=== PATIENT | female | born 1985 | race Caucasian/White ===

== ENCOUNTER → 2021-01-05 | Outpatient (CLI) | payer BC | END | disposition home or self-care (01) | LOC: LABWHC1 15:26 | PROVIDERS: ATTEND Family Medicine | DX: J02.9 Acute pharyngitis, unspecified (principal); R09.81 Nasal congestion | CPT/HCPCS: U0003; C9803 ==

== ENCOUNTER 2021-11-29 14:06 | Emergency (ER) | payer BC ==
--- NOTE | 2021-11-29 15:22 | ED ---
General Adult HPI - General Source: patient, RN notes reviewed Mode of arrival: ambulatory Limitations: no limitations <Gilberto Thomaosn - Last Filed: 11/29/21 15:20> <Joseph Kirkpatrick - Last Filed: 11/29/21 19:11> - General Stated complaint: Enlarged Liver Time Seen by Provider: 11/29/21 15:20 - History of Present Illness Initial comments: 36-year-old female presents emergency Department chief complaint of upper abdominal pain. Patient states she's had symptoms last few days. Patient states that she's had some nausea, and which she thought was initially hypertensive and antacids that did not seem to help much. She was seen in [facility] and sent here for further evaluation. She did receive Zofran which seemed to help. She's had some mild diarrhea or dysuria no hematuria no chance . Patient said no prior abdominal surgeries. Patient states that they did an x-ray and they told her liver was enlarged and sent her here for further evaluation (Gilberto Thomason) Patient is a 36-year-old female with past medical history remarkable for COPD, chronic tobacco use who presents emergency Department complaining of multiple day history of epigastric abdominal pain. She scribes as an achy sensation that is occasionally burning. It does not radiate. States she is reduced appetite because of it. Endorses occasional nausea but denies any episodes of emesis. Has had occasional diarrhea has been nonbloody. Denies any fevers, chills, cough. Denies any chest pain. His no other acute complaint at this time. Was evaluated at the urgent care, where a x-ray showed a possible enlarged liver and she was sent here for further evaluation. She denies any other new complaints. Denies any vaginal discharge or bleeding. Denies any dysuria or hematuria. She denies any chronic alcohol abuse but does admit to social drinking of alcohol. Has no other acute complaints at this time. I evaluated the patient when she was placed in a room. Laboratory studies were already ordered. (Joseph Ferrara) - Related Data Home Medications Medication Instructions Recorded Confirmed Dextroamphetamine/Amphetamine 10 mg PO BID@0700,1200 11/29/21 11/29/21 [Adderall] Ondansetron HCl [Zofran] 4 mg PO QID PRN 11/29/21 11/29/21 Previous Rx's Medication Instructions Recorded Famotidine [Pepcid] 20 mg PO DAILY 14 Days #14 tablet 11/29/21 Ondansetron Odt [Zofran Odt] 4 mg PO Q8HR PRN 3 Days #9 tab 11/29/21 Allergies Allergy/AdvReac Type Severity Reaction Status Date / Time No Known Allergies Allergy Verified 11/29/21 15:19 Review of Systems ROS Other: All systems not noted in ROS Statement are negative. <Gilberto Thomason - Last Filed: 11/29/21 15:20> ROS Other: All systems not noted in ROS Statement are negative. <Joseph Kirkpatrick - Last Filed: 11/29/21 19:11> ROS Statement: Those systems with pertinent positive or pertinent negative responses have been documented in the HPI. Review of Systems: CONST: Denies fever EYES: Denies blurry vision ENT: Denies nasal congestion C/V: Denies Chest pain RESP: Denies shortness of breath GI: Endorses epigastric abdominal pain. : Denies dysuria SKIN: Denies rash. MSK: Denies joint pain. NEURO: Denies headache (Joseph Kirkpatrick) General Exam <Joseph Kirkpatrick - Last Filed: 11/29/21 19:11> - General Exam Comments Initial Comments: General: Appears in no acute distress. HEAD: Normal with no signs of head trauma. EYES: PERRLA, EOMI, conjunctiva normal, no discharge. ENT: Hearing grossly intact, normal oropharynx. RESPIRATORY: Clear breath sounds bilaterally. No wheezes, rales, or rhonchi. C/V: Regular rate and rhythm. S1 and S2 auscultated, no edema, peripheral pulses 2+ and intact throughout ABD: Abdomen soft, nondistended. Patient is tender to palpation in the epigastric region. No CVA tenderness to percussion. No guarding. No periton eal signs. No rebound tenderness. EXT: Normal range of motion, no obvious deformity SKIN: No rashes or lesions observed on exposed skin. NEURO: Alert and oriented 4. (Joseph Kirkpartick) Course Vital Signs 11/29/21 15:20 Temperature 98.1 F Pulse Rate 89 Respiratory 20 Rate Blood Pressure 162/102 O2 Sat by Pulse 96 Oximetry Medical Decision Making - Lab Data Result diagrams: 11/29/21 15:26 11/29/21 15:26 - EKG Data -: EKG Interpreted by Me <Joseph Kirkpatrick - Last Filed: 11/29/21 19:11> - Medical Decision Making Based the patient's presentation and physical exam, I'm concerned for intra- abdominal process for current symptoms, but cannot rule out atypical cause of cardiac etiology either. Therefore screening EKG will be obtained in addition to gallbladder and liver ultrasound. Laboratory studies were already drawn are unremarkable, including normal kidney function, negative lactic acid, normal lipase, negative test, as well as normal urine. She has no signs of acute infection on labs. I did discuss this with the patient. She was in agreement this plan. She'll be sent medically treated with 1 L fluid bolus as well as IV Zofran, Pepcid, Benadryl and some Maalox. Patient's EKG showed no signs of acute ischemia. Right upper quadrant ultrasound revealed normal gallbladder. Negative exam. Liver is mildly enlarged. On reevaluation, patient's symptoms have completely resolved. I did discuss the ultrasound findings with her as well as the normal workup otherwise. I believe it is safe for her to be discharged home. She was in agreement this plan. She'll be given GI follow-up as well as ODT Zofran and Pepcid. She was in agreement this plan. I will provide the patient with a prescription for ODT Zofran, Pepcid. I instructed the patient to follow up with their PCP in the next 3 days. [I provided contact information for follow up with] Dr. Dr. Kaye of gastroenterology. I explained that the patient should return to the emergency department if they experience any worsening symptoms. Strict return precautions were discussed with the patient. The patient expressed understanding of these instructions. I answered all questions that the patient had. The patient was discharged home in good condition with their prescriptions and follow up information. (Joseph Kirkpatrick) - Lab Data Lab Results 11/29/21 11/29/21 11/29/21 Range/Units 15:26 15: 15: WBC 6.8 (3.8-10.6) k/uL RBC 4.75 (3.80-5.40) m/uL Hgb 14.8 (11.4-16.0) gm/dL Hct 43.8 (34.0-46.0) % MCV 92.3 (80.0-100.0) fL MCH 31.1 (25.0-35.0) pg MCHC 33.7 (31.0-37.0) g/dL RDW 11.9 (11.5-15.5) % Plt Count 244 (150-450) k/uL MPV 7.4 Neutrophils % 72 % Lymphocytes % 19 % Monocytes % 4 % Eosinophils % 3 % Basophils % 0 % Neutrophils # 4.9 (1.3-7.7) k/uL Lymphocytes # 1.3 (1.0-4.8) k/uL Monocytes # 0.3 (0-1.0) k/uL Eosinophils # 0.2 (0-0.7) k/uL Basophils # 0.0 (0-0.2) k/uL Sodium (137-145) mmol/L Potassium (3.5-5.1) mmol/L Chloride (98-107) mmol/L Carbon Dioxide (22-30) mmol/L Anion Gap mmol/L BUN (7-17) mg/dL Creatinine (0.52-1.04) mg/dL Est GFR (CKD-EPI)AfAm (>60 ml/min/1.73 sqM) Est GFR (CKD-EPI)NonAf (>60 ml/min/1.73 sqM) Glucose (74-99) mg/dL Plasma Lactic Acid Michael (0.7-2.0) mmol/L Calcium (8.4-10.2) mg/dL Total Bilirubin (0.2-1.3) mg/dL AST (14-36) U/L ALT (4-34) U/L Alkaline Phosphatase (38-126) U/L Total Protein (6.3-8.2) g/dL Albumin (3.5-5.0) g/dL Lipase (23-300) U/L Urine Color Yellow Urine Appearance Clear (Clear) Urine pH 5.5 (5.0-8.0) Ur Specific [place] 1.015 (1.001-1.035) Urine Protein Negative (Negative) Urine Glucose (UA) Negative (Negative) Urine Ketones Negative (Negative) Urine Blood Negative (Negative) Urine Nitrite Negative (Negative) Urine Bilirubin Negative (Negative) Urine Urobilinogen <2.0 (<2.0) mg/dL Ur Leukocyte Esterase Negative (Negative) Urine HCG, Qual Not Detected (Not Detectd) 11/29/21 11/29/21 Range/Units 15:26 15:26 WBC (3.8-10.6) k/uL RBC (3.80-5.40) m/uL Hgb (11.4-16.0) gm/dL Hct (34.0-46.0) % MCV (80.0-100.0) fL MCH (25.0-35.0) pg MCHC (31.0-37.0) g/dL RDW (11.5-15.5) % Plt Count (150-450) k/uL MPV Neutrophils % % Lymphocytes % % Monocytes % % Eosinophils % % Basophils % % Neutrophils # (1.3-7.7) k/uL Lymphocytes # (1.0-4.8) k/uL Monocytes # (0-1.0) k/uL Eosinophils # (0-0.7) k/uL Basophils # (0-0.2) k/uL Sodium 139 (137-145) mmol/L Potassium 3.7 (3.5-5.1) mmol/L Chloride 108 H (98-107) mmol/L Carbon Dioxide 19 L (22-30) mmol/L Anion Gap 12 mmol/L BUN 6 L (7-17) mg/dL Creatinine 0.70 (0.52-1.04) mg/dL Est GFR (CKD-EPI)AfAm >90 (>60 ml/min/1.73 sqM) Est GFR (CKD-EPI)NonAf >90 (>60 ml/min/1.73 sqM) Glucose 101 H (74-99) mg/dL Plasma Lactic Acid Michael <0.5 L (0.7-2.0) mmol/L Calcium 8.8 (8.4-10.2) mg/dL Total Bilirubin 0.5 (0.2-1.3) mg/dL AST 22 (14-36) U/L ALT 17 (4-34) U/L Alkaline Phosphatase 58 (38-126) U/L Total Protein 7.1 (6.3-8.2) g/dL Albumin 4.4 (3.5-5.0) g/dL Lipase 108 (23-300) U/L Urine Color Urine Appearance (Clear) Urine pH (5.0-8.0) Ur Specific [place] (1.001-1.035) Urine Protein (Negative) Urine Glucose (UA) (Negative) Urine Ketones (Negative) Urine Blood (Negative) Urine Nitrite (Negative) Urine Bilirubin (Negative) Urine Urobilinogen (<2.0) mg/dL Ur Leukocyte Esterase (Negative) Urine HCG, Qual (Not Detectd) - EKG Data EKG Comments: 12-lead Electrocardiogram Interpretation Note EKG was reviewed and interpreted by myself. 12-lead ECG performed at 1833 is interpreted by me as revealing normal sinus rhythm at a rate of 72 beats per minute. Otho is normal. OH interval is 160 ms, QRS duration is 94 ms, QTc is 442 ms.. There is an isolated T-wave inversion in lead III. There were no ST or T wave abnormalities to suggest myocardial ischemia or injury. R wave progression across the precordium was satisfactory. By my interpretation this EKG is non-diagnostic for acute ischemia. (Joseph Kirkpatrick) Disposition <Gilberto Thomason - Last Filed: 11/29/21 15:20> Is patient prescribed a controlled substance at d/c from ED?: No <Joseph Kirkpatrick - Last Filed: 11/29/21 19:11> Clinical Impression: Abdominal pain, Enlarged liver Disposition: HOME SELF-CARE Condition: Good Instructions (If sedation given, give patient instructions): Abdominal Pain (ED) Prescriptions: Famotidine [Pepcid] 20 mg PO DAILY 14 Days #14 tablet Ondansetron Odt [Zofran Odt] 4 mg PO Q8HR PRN 3 Days #9 tab PRN Reason: Nausea Referrals: Preet Das MD [Primary Care Provider] - 1-2 days Justina Kaye MD [STAFF PHYSICIAN] - 1-2 days
[2021-11-29 15:23] VITALS: BP 162/102; PULSE 89; RESP 20; TEMP 98.1
[2021-11-29 15:44] LABS: Basophils % (A) 0 %; Eosinophils # (A) 0.2 k/uL (0-0.7); Eosinophils % (A) 3 %; HCT 43.8 % (34.0-46.0); HGB 14.8 gm/dL (11.4-16.0); Lymphocytes # (A) 1.3 k/uL (1.0-4.8); Lymphocytes % (A) 19 %; MCH 31.1 pg (25.0-35.0); MCHC 33.7 g/dL (31.0-37.0); MCV 92.3 fL (80.0-100.0); Mean Platelet Volume 7.4; Monocytes # (A) 0.3 k/uL (0-1.0); Monocytes % (A) 4 %; Neutrophils # (A) 4.9 k/uL (1.3-7.7); Neutrophils % (A) 72 %; Platelet Count 244 k/uL (150-450); RBC 4.75 m/uL (3.80-5.40); RDW 11.9 % (11.5-15.5); WBC 6.8 k/uL (3.8-10.6)
[2021-11-29 15:53] LABS: ALT 17 U/L (4-34); AST 22 U/L (14-36); African American GFR (CKD) >90 (>60 ml/min/1.73 sqM); Albumin 4.4 g/dL (3.5-5.0); Alkaline Phosphatase 58 U/L (38-126); Anion Gap 12 mmol/L; Blood Urea Nitrogen 6 mg/dL (7-17); Calcium 8.8 mg/dL (8.4-10.2); Carbon Dioxide 19 mmol/L (22-30); Chloride 108 mmol/L (98-107); Glucose 101 mg/dL (74-99); Lipase 108 U/L (23-300); Non-African American GFR(CKD) >90 (>60 ml/min/1.73 sqM); Potassium 3.7 mmol/L (3.5-5.1); Sodium 139 mmol/L (137-145); Total Bilirubin 0.5 mg/dL (0.2-1.3); Total Protein 7.1 g/dL (6.3-8.2)
[2021-11-29 15:56] LABS: Appearance,Urine Clear (Clear); Bilirubin,Urine Negative (Negative); Blood,Urine Negative (Negative); Color,Urine Yellow; Glucose,Urine (UA) Negative (Negative); Ketones,Urine Negative (Negative); Leukocyte Esterase,Urine Negative (Negative); Nitrite,Urine Negative (Negative); PH, Urine 5.5 (5.0-8.0); Protein,Urine Negative (Negative); Specific Gravity,Urine 1.015 (1.001-1.035); Urobilinogen,Urine <2.0 mg/dL (<2.0)
[2021-11-29] MEDS ORDERED: SODIUM CHLORIDE 0.9% 1,000 ML IV ONE (16:59)
[2021-11-29] MEDS ORDERED: diphenhydrAMINE 50 MG/ML 1 ML VIAL IVP STA (16:59)
[2021-11-29] MEDS ORDERED: ONDANSETRON 4 MG/2 ML VIAL IVP STA (16:59)
[2021-11-29] MEDS ORDERED: FAMOTIDINE 20 MG/2 ML VIAL IV STA (16:59)
[2021-11-29] MEDS ORDERED: MAG HYDROX/AL HYDROX/SIMETH 30 ML CUP PO STA (17:00)
--- NOTE | 2021-11-29 18:34 | US ---
EXAMINATION TYPE: US gallbladder DATE OF EXAM: 11/29/2021 COMPARISON: NONE CLINICAL HISTORY: enlarged liver on xray outpatient. Pain, enlarged liver seen on outpatient XR. EXAM MEASUREMENTS: Liver Length: 18.6 cm Gallbladder Wall: 0.18 cm CBD: 0.59 cm Right Kidney: 11.2 x 5.5 x 4.0 cm Limited due to gas. Pancreas: Not well seen. Liver: Appears enlarged Gallbladder: Fold seen at neck. Appears anechoic. Evidence for sonographic Mak's sign: No. CBD: Measures upper limits of normal. Right Kidney: No hydronephrosis or masses seen IMPRESSION: No gallstones or dilated ducts. Negative exam.
== END 2021-11-29 19:05 | disposition home or self-care (01) ==
LOC: EC 14:06
DX: R16.0 Hepatomegaly, not elsewhere classified (principal); R10.10 Upper abdominal pain, unspecified; J44.9 Chronic obstructive pulmonary disease, unspecified
CPT/HCPCS: 36415; 93005; 80053; 83605; 83690; 85025; 81003; 81025; 76705; 99284; 96374; 96375; 96361; J1200; J2405

== ENCOUNTER 2021-11-30 09:08 | Emergency (ER) | payer BC ==
[2021-11-30] MEDS ORDERED: IOPAMIDOL CONTRAST (ORAL USE) VIAL PO PRN (10:01)
[2021-11-30] MEDS ORDERED: PANTOPRAZOLE 40 MG/10 ML VIAL IVP STA (10:02)
[2021-11-30] MEDS ORDERED: KETOROLAC 15 MG/ML 1 ML VIAL IVP STA (10:03)
[2021-11-30 10:27] LABS: Appearance,Urine Clear (Clear); Bilirubin,Urine Negative (Negative); Blood,Urine Negative (Negative); Color,Urine Yellow; Glucose,Urine (UA) Negative (Negative); Ketones,Urine Negative (Negative); Leukocyte Esterase,Urine Negative (Negative); Nitrite,Urine Negative (Negative); PH, Urine 6.5 (5.0-8.0); Protein,Urine Trace (Negative); Specific Gravity,Urine 1.021 (1.001-1.035)
[2021-11-30 10:36] LABS: Basophils % (A) 0 %; Eosinophils # (A) 0.2 k/uL (0-0.7); Eosinophils % (A) 2 %; HCT 43.2 % (34.0-46.0); HGB 14.5 gm/dL (11.4-16.0); Lymphocytes # (A) 1.6 k/uL (1.0-4.8); Lymphocytes % (A) 18 %; MCH 31.6 pg (25.0-35.0); MCHC 33.6 g/dL (31.0-37.0); MCV 93.8 fL (80.0-100.0); Mean Platelet Volume 7.3; Monocytes # (A) 0.4 k/uL (0-1.0); Monocytes % (A) 5 %; Neutrophils # (A) 6.4 k/uL (1.3-7.7); Neutrophils % (A) 74 %; Platelet Count 273 k/uL (150-450); RDW 12.5 % (11.5-15.5); WBC 8.7 k/uL (3.8-10.6)
[2021-11-30 10:39] LABS: ALT 17 U/L (4-34); AST 24 U/L (14-36); African American GFR (CKD) >90 (>60 ml/min/1.73 sqM); Albumin 4.3 g/dL (3.5-5.0); Alkaline Phosphatase 70 U/L (38-126); Amylase 46 U/L (30-110); Anion Gap 9 mmol/L; Blood Urea Nitrogen 6 mg/dL (7-17); Calcium 8.8 mg/dL (8.4-10.2); Carbon Dioxide 22 mmol/L (22-30); Chloride 109 mmol/L (98-107); Glucose 95 mg/dL (74-99); Lipase 147 U/L (23-300); Non-African American GFR(CKD) >90 (>60 ml/min/1.73 sqM); Potassium 3.8 mmol/L (3.5-5.1); Sodium 140 mmol/L (137-145); Total Bilirubin 0.4 mg/dL (0.2-1.3); Total Protein 7.2 g/dL (6.3-8.2)
--- NOTE | 2021-11-30 10:41 | ED ---
Abdominal Pain HPI - General Chief Complaint: Abdominal Pain Stated Complaint: Abd pain, enlarged liver, revisit Time Seen by Provider: 11/30/21 09:20 Source: patient, RN notes reviewed, old records reviewed Mode of arrival: ambulatory Limitations: no limitations - History of Present Illness Initial Comments: 36-year-old female returns today with complaints of increased abdominal pain she was seen yesterday told she had an enlarged liver ultrasound showed unremarkable gallbladder. Pain was burning in nature 7 and 8/10 severity worse with food better in a supine position no overt nausea vomiting diarrhea seen at this time MD Complaint: abdominal pain - Related Data Home Medications Medication Instructions Recorded Confirmed Dextroamphetamine/Amphetamine 10 mg PO BID@0700,1200 11/29/21 11/30/21 [Adderall] Famotidine [Pepcid] 20 mg PO DAILY 11/30/21 11/30/21 Previous Rx's Medication Instructions Recorded Ondansetron Odt [Zofran Odt] 4 mg PO Q8HR PRN 3 Days #9 tab 11/29/21 Dicyclomine [Bentyl] 10 mg PO TID #15 capsule 11/30/21 Pantoprazole [Protonix] 40 mg PO DAILY 7 Days #7 tab 11/30/21 Allergies Allergy/AdvReac Type Severity Reaction Status Date / Time No Known Allergies Allergy Verified 11/30/21 09:44 Review of Systems ROS Statement: Those systems with pertinent positive or pertinent negative responses have been documented in the HPI. ROS Other: All systems not noted in ROS Statement are negative. Past Medical History Past Medical History: No Reported History Additional Past Medical History / Comment(s): enlarged liver History of Any Multi-Drug Resistant Organisms: None Reported Past Surgical History: Tonsillectomy Past Psychological History: ADD/ADHD Smoking Status: Current every day smoker Past Alcohol Use History: Occasional Past Drug Use History: None Reported General Exam - General Exam Comments Initial Comments: This is a well-developed well-nourished awake alert oriented 3 male Limitations: no limitations General appearance: alert, anxious Head exam: Present: atraumatic, normocephalic, normal inspection Eye exam: Present: normal appearance, PERRL, EOMI. Absent: scleral icterus, conjunctival injection, periorbital swelling ENT exam: Present: normal exam, mucous membranes moist Neck exam: Present: normal inspection. Absent: tenderness, meningismus, lymphadenopathy Respiratory exam: Present: normal lung sounds bilaterally. Absent: respiratory distress, wheezes, rales, rhonchi, stridor Cardiovascular Exam: Present: regular rate, normal rhythm, normal heart sounds. Absent: systolic murmur, diastolic murmur, rubs, gallop, clicks GI/Abdominal exam: Present: soft, tenderness (Epigastric and right upper quadrant tenderness palpation no overt guarding rebound masses or bruits), norm al bowel sounds. Absent: distended, guarding, rebound, rigid Extremities exam: Present: normal inspection, full ROM, normal capillary refill. Absent: tenderness, pedal edema, joint swelling, calf tenderness Back exam: Present: normal inspection Neurological exam: Present: alert, oriented X3, CN II-XII intact Psychiatric exam: Present: normal affect, normal mood Skin exam: Present: warm, dry, intact, normal color. Absent: rash Course Vital Signs 11/30/21 11/30/21 09:11 13:48 Temperature 99.1 F 98.2 F Pulse Rate 83 60 Respiratory 18 18 Rate Blood Pressure 162/100 181/105 O2 Sat by Pulse 98 98 Oximetry - Reevaluation(s) Reevaluation #1: 11/30/21 14:25 Reevaluation patient she feels improved her blood pressure was noted be elevated with an improved. Medical Decision Making - Medical Decision Making Patient is feeling improved this time after IV Protonix. The presentation is consistent with abdominal pain secondary to enteritis and/or peptic ulcer disease. Patient will be discharged with instructions for proton pump inhibitor as well as increase oral fluids follow-up with Dr. Das for further evaluation. I did discuss this with her also with her father by telephone. - Lab Data Result diagrams: 11/30/21 10:10 11/30/21 10:10 Lab Results 11/30/21 11/30/21 11/30/21 Range/Units 10:10 10:10 10:10 WBC 8.7 (3.8-10.6) k/uL RBC 4.60 (3.80-5.40) m/uL Hgb 14.5 (11.4-16.0) gm/dL Hct 43.2 (34.0-46.0) % MCV 93.8 (80.0-100.0) fL MCH 31.6 (25.0-35.0) pg MCHC 33.6 (31.0-37.0) g/dL RDW 12.5 (11.5-15.5) % Plt Count 273 (150-450) k/uL MPV 7.3 Neutrophils % 74 % Lymphocytes % 18 % Monocytes % 5 % Eosinophils % 2 % Basophils % 0 % Neutrophils # 6.4 (1.3-7.7) k/uL Lymphocytes # 1.6 (1.0-4.8) k/uL Monocytes # 0.4 (0-1.0) k/uL Eosinophils # 0.2 (0-0.7) k/uL Basophils # 0.0 (0-0.2) k/uL Sodium 140 (137-145) mmol/L Potassium 3.8 (3.5-5.1) mmol/L Chloride 109 H (98-107) mmol/L Carbon Dioxide 22 (22-30) mmol/L Anion Gap 9 mmol/L BUN 6 L (7-17) mg/dL Creatinine 0.78 (0.52-1.04) mg/dL Est GFR (CKD-EPI)AfAm >90 (>60 ml/min/1.73 sqM) Est GFR (CKD-EPI)NonAf >90 (>60 ml/min/1.73 sqM) Glucose 95 (74-99) mg/dL Plasma Lactic Acid Michael (0.7-2.0) mmol/L Calcium 8.8 (8.4-10.2) mg/dL Total Bilirubin 0.4 (0.2-1.3) mg/dL AST 24 (14-36) U/L ALT 17 (4-34) U/L Alkaline Phosphatase 70 (38-126) U/L Troponin I (0.000-0.034) ng/mL Total Protein 7.2 (6.3-8.2) g/dL Albumin 4.3 (3.5-5.0) g/dL Amylase 46 (30-110) U/L Lipase 147 (23-300) U/L Urine Color Yellow Urine Appearance Clear (Clear) Urine pH 6.5 (5.0-8.0) Ur Specific [place] 1.021 (1.001-1.035) Urine Protein Trace H (Negative) Urine Glucose (UA) Negative (Negative) Urine Ketones Negative (Negative) Urine Blood Negative (Negative) Urine Nitrite Negative (Negative) Urine Bilirubin Negative (Negative) Urine Urobilinogen 2.0 (<2.0) mg/dL Ur Leukocyte Esterase Negative (Negative) Urine HCG, Qual (Not Detectd) 11/30/21 11/30/21 11/30/21 Range/Units 10:10 10:10 10:19 WBC (3.8-10.6) k/uL RBC (3.80-5.40) m/uL Hgb (11.4-16.0) gm/dL Hct (34.0-46.0) % MCV (80.0-100.0) fL MCH (25.0-35.0) pg MCHC (31.0-37.0) g/dL RDW (11.5-15.5) % Plt Count (150-450) k/uL MPV Neutrophils % % Lymphocytes % % Monocytes % % Eosinophils % % Basophils % % Neutrophils # (1.3-7.7) k/uL Lymphocytes # (1.0-4.8) k/uL Monocytes # (0-1.0) k/uL Eosinophils # (0-0.7) k/uL Basophils # (0-0.2) k/uL Sodium (137-145) mmol/L Potassium (3.5-5.1) mmol/L Chloride (98-107) mmol/L Carbon Dioxide (22-30) mmol/L Anion Gap mmol/L BUN (7-17) mg/dL Creatinine (0.52-1.04) mg/dL Est GFR (CKD-EPI)AfAm (>60 ml/min/1.73 sqM) Est GFR (CKD-EPI)NonAf (>60 ml/min/1.73 sqM) Glucose (74-99) mg/dL Plasma Lactic Acid Michael 0.6 L (0.7-2.0) mmol/L Calcium (8.4-10.2) mg/dL Total Bilirubin (0.2-1.3) mg/dL AST (14-36) U/L ALT (4-34) U/L Alkaline Phosphatase (38-126) U/L Troponin I <0.012 (0.000-0.034) ng/mL Total Protein (6.3-8.2) g/dL Albumin (3.5-5.0) g/dL Amylase (30-110) U/L Lipase (23-300) U/L Urine Color Urine Appearance (Clear) Urine pH (5.0-8.0) Ur Specific [place] (1.001-1.035) Urine Protein (Negative) Urine Glucose (UA) (Negative) Urine Ketones (Negative) Urine Blood (Negative) Urine Nitrite (Negative) Urine Bilirubin (Negative) Urine Urobilinogen (<2.0) mg/dL Ur Leukocyte Esterase (Negative) Urine HCG, Qual Not Detected (Not Detectd) - Radiology Data Radiology results: report reviewed (Imaging and report reviewed evidence of enteritis peptic ulcer disease not ruled out is considered.), image reviewed Disposition Clinical Impression: Abdominal pain, Enteritis Disposition: HOME SELF-CARE Condition: Good Instructions (If sedation given, give patient instructions): Abdominal Pain (ED), Enteritis (ED) Prescriptions: Dicyclomine [Bentyl] 10 mg PO TID #15 capsule Pantoprazole [Protonix] 40 mg PO DAILY 7 Days #7 tab Is patient prescribed a controlled substance at d/c from ED?: No Referrals: Preet Das MD [Primary Care Provider] - 1-2 days
--- NOTE | 2021-11-30 10:49 | XR ---
EXAMINATION TYPE: XR KUB DATE OF EXAM: 11/30/2021 10:38 AM CLINICAL HISTORY: Abdominal pain. TECHNIQUE: Two Upright KUB images of the abdomen are obtained. COMPARISON: Ultrasound gallbladder from yesterday. FINDINGS: Scattered gas is seen in non-distended small bowel loops. Gas and fecal material is seen in non-distended colon. Hepatomegaly is present. No suspicious calcifications. The lung bases are clear and the osseous structures are intact. IMPRESSION: Hepatomegaly redemonstrated. Overall nonobstructive bowel gas pattern.
--- NOTE | 2021-11-30 13:32 | CT ---
EXAMINATION TYPE: CT abdomen pelvis w con DATE OF EXAM: 11/30/2021 COMPARISON: HISTORY: Epigastric abdominal pain. CT DLP: 1071.7 mGycm Automated exposure control for dose reduction was used. TECHNIQUE: Helical acquisition of images from the lung bases through the pelvis have been completed. CONTRAST: Performed with Oral Contrast and with IV Contrast, patient injected with 100ml mL of Isovue 300. FINDINGS: LUNG BASES: No significant abnormality is appreciated. AORTA: No significant abnormality is appreciated. LIVER/GB: The liver is enlarged. Gallbladder is within normal limits. PANCREAS: No significant abnormality is seen. SPLEEN: No significant abnormality is seen. ADRENALS: No significant abnormality is seen. KIDNEYS: No significant abnormality is seen. REPRODUCTIVE ORGANS: Cystic focus is associated with the left ovary measuring 3 cm BOWEL: The appendix is normal. No bowel obstruction. Jejunal folds show a thickened appearance. Cont rast material has not coursed entirely through the bowel. Questionable thinning of the anterior aspec t of the proximal duodenum. FREE AIR: No Free Air visible. ASCITES: There is some free fluid in the pelvis which could be physiologic. PELVIC ADENOPATHY: None visualized. RETROPERITONEAL ADENOPATHY: No Retroperitoneal Adenopathy visible. URINARY BLADDER: No significant abnormality is seen. OSSEOUS STRUCTURES: No significant abnormality is seen. IMPRESSION: CORRELATE FOR ENTERITIS. FREE FLUID IN THE PELVIS COULD BE DUE TO RUPTURED OR INVOLUTING OVARIAN FOLL ICLE. HEPATOMEGALY. DIFFICULT TO EXCLUDE PEPTIC ULCER DISEASE.
[2021-11-30 13:53] VITALS: TEMP 98.2
[2021-11-30 14:38] VITALS: BP 175/89; PULSE 59; RESP 16
[2021-11-30 16:10] LABS: Hepatitis C IgG Antibody Nonreactive (Nonreactive)
[2021-11-30 16:11] LABS: Hepatitis A Antibody IgM Nonreactive (Nonreactive); Hepatitis B Core IgM Nonreactive (Nonreactive); Hepatitis B Surface Antigen Nonreactive (Nonreactive)
== END 2021-11-30 14:38 | disposition home or self-care (01) ==
LOC: EC 09:08
DX: K52.9 Noninfective gastroenteritis and colitis, unspecified (principal); F90.9 Attention-deficit hyperactivity disorder, unspecified type; F17.200 Nicotine dependence, unspecified, uncomplicated; Z79.899 Other long term (current) drug therapy
CPT/HCPCS: 36415; 80053; 80074; 82150; 83605; 83690; 84484; 85025; 81003; 81025; 74018; 74177; 99284; 96374; 96375; J1885; C9113; Q9967

== ENCOUNTER → 2022-06-04 | Outpatient (CLI) | payer BC ==
--- NOTE | 2022-06-05 08:18 | US ---
EXAMINATION TYPE: US pelvic complete DATE OF EXAM: 06/04/2022 COMPARISON: CT 2021 CLINICAL HISTORY: N93.8 DYSFUNCTIONAL UTERINE BLEEDING. Pain and spotting during intercourse, spottin g between periods TECHNIQUE: . Transabdominal sonographic images of the pelvis were acquired. Date of LMP: 05/19/2022 EXAM MEASUREMENTS: Uterus: 5.5 x 3.4 x 4.4 cm Endometrial Stripe: 0.6 cm Right Ovary: 6.3 x 4.4 x 5.7 cm Left Ovary: 2.8 x 1.9 x 2.3 cm 1. Uterus: anteverted 2. Endometrium: appears wnl 3. Right Ovary: 3.7 x 3.5 x 4.2cm complex cystic area 4. Left Ovary: wnl 5. Bilateral Adnexa: wnl 6. Posterior cul-de-sac: wnl IMPRESSION: Complex cyst right ovary. Consider follow-up study in 6 weeks.
== END | disposition home or self-care (01) ==
LOC: RADUSWWP 16:11
PROVIDERS: ATTEND Family Medicine
DX: N93.8 Other specified abnormal uterine and vaginal bleeding (principal); N83.201 Unspecified ovarian cyst, right side
CPT/HCPCS: 76856

== ENCOUNTER → 2023-04-16 | Outpatient (CLI) | payer BC ==
--- NOTE | 2023-04-17 16:12 | XR ---
EXAMINATION TYPE: XR lumbar spine 2 or 3V DATE OF EXAM: 04/16/2023 CLINICAL HISTORY: Low back pain for several months. TECHNIQUE: Frontal and lateral images of the lumbar spine are obtained. COMPARISON: CT abdomen and pelvis November 30, 2021 FINDINGS: There are 5 lumbar type vertebral bodies identified. The lumbar spine shows stable and sa tisfactory alignment without evidence of acute fracture or dislocation. Vertebral body heights and di sk space heights are within normal limits. Mild multilevel anterior disc space narrowing is redemonst rated. The overlying soft tissue appears unremarkable. IMPRESSION: As above.
--- NOTE | 2023-04-18 09:03 | XR ---
EXAMINATION TYPE: XR sacrum coccyx DATE OF EXAM: 04/16/2023 COMPARISON: NONE HISTORY: 38-year-old female M54.50, M54.30 TECHNIQUE: 3 views FINDINGS: SI joints appear symmetric and intact. Smooth delineation to the arcuate lines of the sacru m. Pubic symphysis is intact. Very minimal 3 mm all step-off along the posterior margin of the coccyg eal segments on the lateral view. IMPRESSION: Very minimal 3 mm of step-off along the posterior margin of the coccygeal segments on the lateral vie w. Findings suggest an age indeterminate minimal tailbone fracture. Clinically correlate.
== END | disposition home or self-care (01) ==
LOC: RADXRMAIN 17:07
PROVIDERS: ATTEND Family Medicine
DX: M48.061 Spinal stenosis, lumbar region without neurogenic claudication (principal); M54.40 Lumbago with sciatica, unspecified side
CPT/HCPCS: 72100; 72220

== ENCOUNTER → 2024-06-04 | Outpatient (CLI) | payer BC ==
[2024-06-04 15:08] LABS: Basophils # (A) 0.06 X 10*3/uL (0.00-0.10); Basophils % (A) 0.7 %; Eosinophils # (A) 0.14 X 10*3/uL (0.04-0.35); Eosinophils % (A) 1.6 %; HCT 42.6 % (37.2-46.3); HGB 14.4 g/dL (12.0-15.0); Lymphocytes # (A) 2.39 X 10*3/uL (0.90-5.00); Lymphocytes % (A) 27.6 %; MCH 29.6 pg (27.0-32.0); MCHC 33.8 g/dL (32.0-37.0); MCV 87.7 FL (80.0-97.0); Monocytes # (A) 0.49 X 10*3/uL (0.20-1.00); Monocytes % (A) 5.7 %; NRBC Per 100 WBC 0 X 10*3/uL (0.00-0.01); Neutrophils # (A) 5.55 X 10*3/uL (1.80-7.70); Neutrophils % (A) 64.1 %; Platelet Count 359 X 10*3/uL (140-440); RBC 4.86 X 10*6/uL (4.10-5.20); RDW 12.6 % (11.5-14.5); WBC 8.66 X 10*3/uL (4.50-10.00)
[2024-06-04 15:29] LABS: Erythrocyte Sedimentation Rate 7 mm/Hr (0-20)
[2024-06-04 15:38] LABS: Blood Urea Nitrogen 9.7 mg/dL (9.0-27.0); Carbon Dioxide 23.1 mmol/L (21.6-31.8); Chloride 104 mmol/L (96-109); Glucose 94 mg/dL (70-110); Potassium 4.4 mmol/L (3.5-5.5); Rheumatoid Factor, Qnt <15 IU/mL (0-15); Sodium 140 mmol/L (135-145)
[2024-06-04 15:39] LABS: ALT 15 U/L (8-44); AST 16 U/L (13-35); Alkaline Phosphatase 69 U/L (41-126); Calcium 10.1 mg/dL (8.7-10.3); Globulin 2.5 g/dL (1.6-3.3); T4, Free (Free Thyroxine) 1.25 ng/dL (0.80-1.80); Total Bilirubin 0.5 mg/dL (0.3-1.2); Total Protein 7.5 g/dL (6.2-8.2)
[2024-06-04 19:53] LABS: Cyclic Citrull Pep IgG Unit <1.5 U/mL (<=3.9); Cyclic Citrullinated Pep IgG Negative
== END | disposition home or self-care (01) ==
LOC: LABWHC1 12:09
PROVIDERS: ATTEND Family Medicine
DX: M79.10 Myalgia, unspecified site (principal); M25.00 Hemarthrosis, unspecified joint
CPT/HCPCS: 36415; 80053; 84439; 84443; 85025; 85652; 86038; 86140; 86200; 86431

== ENCOUNTER → 2024-08-26 | Outpatient (CLI) | payer BC ==
--- NOTE | 2024-08-26 08:23 | MM ---
Reason for Exam: Clinical finding. Baseline mammogram. Indicated Problems: Lump or thickening of the right side (size 7) for 2 Week(s). Patient History: Menarche at age 11. Patient has no children. Last menstrual period: 08/13/2024 Risk Values: Zee 5 year model risk: 0.6%. NCI Lifetime model risk: 11.1%. Prior Study Comparison: Patient's first Mammogram. Tissue Density: The breasts are heterogeneously dense, which may obscure small masses. Findings: Analyzed By CAD. No distinct mass at the site of clinical concern right breast. No suspicious microcalcifications or areas of distortion. Overall Assessment: Incomplete: need additional imaging evaluation, BI-RAD 0 Management: Diagnostic Breast Ultrasound of the right breast. . Results were given to the patient verbally at the time of exam. Patient should continue monthly self-breast exams. A clinical breast exam by your physician is recommended on an annual basis. This exam should not preclude additional follow-up of suspicious palpable abnormalities. Note on Zee scores and lifetime risk: 1. A Zee score greater than 3% is considered moderate risk. If this is the case, consider specialist referral to assess eligibility for a risk reducing agent. 2. If overall lifetime risk for the development of breast cancer is 20% or higher, the patient may qualify for future screening with alternating mammogram and breast MRI. [facility], , 08/26/2024 8:20 AM. Electronically signed and approved by: Juanpablo Sawyer M.D. Radiologis
--- NOTE | 2024-08-26 08:51 | USB ---
Reason for Exam: Clinical finding. Patient History: Menarche at age 11. Patient has no children. Risk Values: Zee 5 year model risk: 0.6%. NCI Lifetime model risk: 11.1%. Technique: Method: Targeted. Findings: The area of palpable concern of the right breast, the axilla of the right breast and the retroareolar of the right breast were scanned. No solid or cystic masses are identified.. Overall Assessment: Negative, BI-RAD 1 Management: Screening Mammogram of both breasts in 1 year. A clinical breast exam by your physician is recommended on an annual basis and results should be correlated with mammographic findings. This exam should not preclude additional follow-up of suspicious palpable abnormalities. Results were given to the patient verbally at the time of exam. [facility], , 08/26/2024 8:48 AM. Electronically signed and approved by: Juanpablo Sawyer M.D. Radiologis
== END | disposition home or self-care (01) ==
LOC: RADMAMWWP 07:39
PROVIDERS: ATTEND Family Medicine
DX: N63.0 Unspecified lump in unspecified breast
CPT/HCPCS: 77062; 77066